=== PATIENT | female | born 1950 | race Caucasian/White ===

== ENCOUNTER 2020-03-25 13:29 | Outpatient (REF) | payer MEDICARE, MEDICAID, SELFPAY ==
--- NOTE | 2020-03-25 13:32 | CT_ITS ---
EXAMINATION: CT CHEST SCREENING CLINICAL INFORMATION: Smoker. Lung screening. COMPARISON: CT chest 01/22/2019 TECHNIQUE: Multidetector volumetric CT imaging of the chest is performed without contrast using low dose technique. Additional 2D coronal and sagittal reformatted images and axial 3D maximum intensity projection (MIP) images are generated on the CT workstation. This CT examination was performed using dose optimization techniques as appropriate, variously including the following: Automated exposure control. Adjustment of mA and/or kV according to patient size (this includes techniques or standardized protocols for targeted exams where dose is matched to indication/reason for exam; i.e. extremities or head). Use of iterative reconstruction technique. DLP: 36 mGy-cm FINDINGS: LUNGS: There are small cystic changes in the right lung apex with mild emphysema. Mild reticular changes and minimal haziness in the left upper lobe are stable. Small cystic changes seen previously in the left upper lobe anteriorly are not visualized at this time. Mild scarring along the medial segment of right middle lobe is stable. A 7 mm calcified nodule right middle lobe axial image 35/4 is stable. A 2 mm right apical nodule image 4/48 and 2 mm calcified nodule right lateral CP angle right lower lobe axial image 39/4 are stable. No new nodules seen. MEDIASTINUM: The thyroid lobes are symmetrical and normal. The central trachea and the bronchi are widely patent. The heart size and great vessels are normal caliber. No pericardial effusion seen. PLEURA: There is no pleural effusion. No pleural mass or thickening. AXILLA: No lymphadenopathy. UPPER ABDOMEN: Visualized liver, spleen and pancreas appears unremarkable. The left adrenal gland is prominent. OSSEOUS STRUCTURES: No lytic or sclerotic process seen. Mild ventral spondylosis. CT/CT lung screening IMPRESSION: Minimal emphysema. Stable pulmonary nodules. Largest 7 mm noncalcified nodule right middle lobe is stable as well. No abnormal size mediastinal or axillary lymphadenopathy. ASSESSMENT: Lung-RADS category 2: Benign RECOMMENDATION: Annual low-dose CT chest follow up.
== END 2020-03-25 13:30 | disposition home or self-care (01) ==
LOC: HO.CT 13:29
PROVIDERS: PCP Internal Medicine; Visit Provider Surgery
DX: Z12.2 Encounter for screening for malignant neoplasm of respiratory organs (principal); Z87.891 Personal history of nicotine dependence
CPT/HCPCS: 71250

== ENCOUNTER 2020-04-15 13:31 | Outpatient (REF) | payer MEDICARE, MEDICAID, SELFPAY | END 2020-04-15 13:32 | disposition home or self-care (01) | LOC: HO.LAB 13:31 | PROVIDERS: Visit Provider Internal Medicine | DX: Z20.828 Contact with and (suspected) exposure to other viral communicable diseases (principal) | CPT/HCPCS: C9803; U0003 ==

== ENCOUNTER 2020-04-21 16:08 | Outpatient (REF) | payer MEDICARE, SELFPAY ==
--- NOTE | 2020-04-21 | MM_ITS ---
EXAMINATION: MM SCREENING DIGITAL BREAST TOMOSYNTHESIS, BILATERAL CLINICAL INFORMATION: Screening. Asymptomatic. The lifetime risk of breast cancer based on the Tyrer-Cuzick Model is 5%. COMPARISON: Outside mammography: 02/28/2019, 09/27/2016, 07/23/2015 ([facility]). TECHNIQUE: Digital breast tomosynthesis is performed in both the craniocaudal and mediolateral oblique views along with computer-aided detection (CAD). Synthesized 2D images are generated from the tomosynthesis. FINDINGS: There are scattered areas of fibroglandular density (ACR BI-RADS breast composition Category b). Breast tissue composition borders on heterogeneously dense. There is no significant mass or architectural abnormality or abnormal calcifications. Again, there are benign grouped calcifications upper outer quadrant left breast, coarsening over time, suggesting degenerating fibroadenoma. Again, there is a stable smooth nodule retroareolar right breast. The bilateral axilla and skin contours are unremarkable. MM/MM tomosynthesis screening BI IMPRESSION: No significant changes from prior outside exams. ASSESSMENT: BI-RADS 2: Benign RECOMMENDATION: Routine annual mammography screening. This patient's information was entered into a reminder system with a target due date for their next mammogram.
== END 2020-04-21 16:09 | disposition home or self-care (01) ==
LOC: HO.MAMMO 16:08
PROVIDERS: PCP Internal Medicine; Visit Provider Internal Medicine
DX: Z12.31 Encounter for screening mammogram for malignant neoplasm of breast (principal)
CPT/HCPCS: 77063; 77067

== ENCOUNTER 2020-08-09 07:55 | Outpatient (REF) | payer MEDICARE, MEDICAID, SELFPAY ==
--- NOTE | ~2020-08-09 | XR_ITS ---
EXAMINATION: XR KNEE, LEFT CLINICAL INFORMATION: Knee pain COMPARISON: Standing AP knees 09/09/2018, left knee radiographs 08/08/2018. TECHNIQUE: Four views of the left knee. FINDINGS: There is no fracture, dislocation, destructive process, or definite suprapatellar effusion. Hoffa's fat pad appears normal. There are osteoarthritic changes greatest medial knee joint compartment with joint narrowing and mild secondary genu varus. There is subchondral sclerosis and spurring from the medial femoral condyle. There is no erosive change or visible chondrocalcinosis. Axial view patella shows no lateralization or tilting. XR/XR knee LT 4V IMPRESSION: Osteoarthritis medial knee joint compartment with secondary mild genu varus. No effusion.
[2020-08-09 09:56] LABS: Alanine Aminotransferase 17 U/L (0-31); Albumin Level 4.1 g/dL (3.5-5.0); Alkaline Phosphatase 90 U/L (39-117); Anion Gap 11 (12-20); Aspartate Amino Transferase 19 U/L (5-31); Bilirubin Total 0.8 mg/dL (0.0-1.0); Blood Urea Nitrogen 23 mg/dL (9-16); Calcium 10.3 mg/dL (8.4-10.2); Carbon Dioxide 26 mmol/L (22-29); Chloride 108 mmol/L (96-108); Cholesterol 122 mg/dL; Estimated Glomerular Filt Rate > 60; Glucose Fasting 97 mg/dL (60-99); HDL Cholesterol 44 mg/dL; LDL Cholesterol Calculated 55 mg/dl; Potassium 4.4 mmol/L (3.3-5.1); Sodium 141 mmol/L (135-145); Total Protein 6.8 g/dL (6.5-8.0); Triglycerides 116 mg/dL
== END 2020-08-09 07:56 | disposition home or self-care (01) ==
LOC: HO.LAB 07:55
PROVIDERS: PCP Internal Medicine; Visit Provider Internal Medicine
DX: E78.5 Hyperlipidemia, unspecified (principal); E78.00 Pure hypercholesterolemia, unspecified
CPT/HCPCS: 36415; 73564; 80053; 80061

== ENCOUNTER 2020-12-03 06:32 | Outpatient (REF) | payer MEDICARE, MEDICAID, SELFPAY ==
[2020-12-03 08:02] LABS: Alanine Aminotransferase 18 U/L (0-31); Albumin Level 4.1 g/dL (3.5-5.0); Alkaline Phosphatase 87 U/L (39-117); Anion Gap 10 (12-20); Aspartate Amino Transferase 18 U/L (5-31); Bilirubin Total 0.6 mg/dL (0.0-1.0); Blood Urea Nitrogen 24 mg/dL (9-16); Calcium 10.4 mg/dL (8.4-10.2); Carbon Dioxide 26 mmol/L (22-29); Chloride 110 mmol/L (96-108); Cholesterol 113 mg/dL; Estimated Glomerular Filt Rate > 60; Glucose Fasting 93 mg/dL (60-99); HDL Cholesterol 44 mg/dL; LDL Cholesterol Calculated 50 mg/dl; Potassium 4.3 mmol/L (3.3-5.1); Sodium 142 mmol/L (135-145); Total Protein 6.8 g/dL (6.5-8.0); Triglycerides 99 mg/dL
== END 2020-12-03 06:33 | disposition home or self-care (01) ==
LOC: HO.LAB 06:32
PROVIDERS: PCP Internal Medicine; Visit Provider Internal Medicine
DX: E78.5 Hyperlipidemia, unspecified (principal); E78.00 Pure hypercholesterolemia, unspecified
CPT/HCPCS: 36415; 80053; 80061

== ENCOUNTER 2021-05-26 10:09 | Outpatient (REF) | payer MEDICARE, MEDICAID, SELFPAY ==
--- NOTE | ~2021-05-26 | MM_ITS ---
EXAMINATION: MM SCREENING DIGITAL BREAST TOMOSYNTHESIS, BILATERAL CLINICAL INFORMATION: Screening. Asymptomatic. The lifetime risk of breast cancer based on the Tyrer-Cuzick Model is 13%. COMPARISON: Mammography: April 21, 2020 and studies dating back to July 23, 2015 TECHNIQUE: Digital breast tomosynthesis is performed in both the craniocaudal and mediolateral oblique views along with computer-aided detection (CAD). Synthesized 2D images are generated from the tomosynthesis. FINDINGS: There are scattered areas of fibroglandular density (ACR BI-RADS breast composition Category b). There are no significant masses, abnormal calcifications, or other abnormalities. MM/MM tomosynthesis screening BI IMPRESSION: There are no significant changes from prior study. ASSESSMENT: BI-RADS 1: Negative RECOMMENDATION: Routine annual mammography screening. This patient's information was entered into a reminder system with a target due date for their next mammogram.
== END 2021-05-26 10:10 | disposition home or self-care (01) ==
LOC: HO.MAMMO 10:09
PROVIDERS: PCP Internal Medicine; Visit Provider Internal Medicine
DX: Z12.31 Encounter for screening mammogram for malignant neoplasm of breast (principal)
CPT/HCPCS: 77063; 77067

== ENCOUNTER 2023-05-29 15:05 | Outpatient (AMB) | payer MEDICARE, SELFPAY ==
--- NOTE | 2023-05-29 15:46 | MHC.PC.OV ---
Vital Signs 05/29/23 15:48 Height 4 ft 11 in Weight 125 lb BMI 25.2 BP 112/80 Blood Pressure Location Lt brachial Position Sitting Intake Visit Reasons: Cataracts Follow up/ED follow up Intake Note: Patient here for referral to personnel security specialist for cataracts, med refills, seen at [facility] ED on 04/14/23 for BPPV Drug Enforcement Agent Required: No Accompanied by: Daughter Allergies No Known Allergies Allergy (Verified 05/29/23 16:03) Medication List - Last Reconciled 05/29/23 by Isatu Lemus MD albuterol sulfate 5 mg inhalation Q6H PRN 30 days albuterol sulfate 90 mcg/actuation 2 puffs inhalation Q6H PRN 30 days alendronate 70 mg PO QWEEK 90 days atorvastatin 10 mg PO QPM 90 days calcium carbonate-vitamin D3 600 mg-10 mcg (400 unit) (Calcium 600 with Vitamin D3) 1 tab PO DAILY cholecalciferol (vitamin D3) 25 mcg PO DAILY 90 days fluticasone propionate 220 mcg/actuation (Flovent HFA) 2 puffs inhalation BID 30 days Tobacco use date assessed: 05/29/23 Fall risk assessment: No Falls in past year Last assessed Fall Risk: 05/29/23 Dental Screening Dental Screen Date: 05/29/23 Did you have a dental visit in the last 12 months?: No Was dental information given to patient?: Patient declined HPI HPI Comments History of Present Illness Details This is a 72-year-old female with pure hypercholesterolemia, osteoporosis and asthma that comes today accompanied by daughter complaining of a skin lesion that is nontender and nonpruritic and has been present for few months. Located in the left elbow. Lipid panel will be order. Last bone density was done in [place] in 2022. She use rescue inhaler as needed and was advised to quit smoking. Denies any chest pain or shortness of breath. [facility] Medical History (Updated 05/29/23 @ 16:15 by Istau Lemus MD) Moderate persistent asthma in adult without complication Hypercalcemia Post-menopausal Left knee pain Osteoporosis Pure hypercholesterolemia Surgical History History of colonoscopy History of hysterectomy History of breast biopsy Family History Father CVD (cardiovascular disease) Asthma Mother CVD (cardiovascular disease) Thyroid disease CAD (coronary artery disease) Sister Diabetes Daughter Hypertension Bipolar 1 disorder Substance abuse Family/Other Chronic mental illness Social History Housing: Apartment Alcohol intake: never Patient Tobacco Use Status: Current everyday Tobacco user Tobacco use type: Cigarette Cigarettes Per Day: 10 e-Cigarette/Vaping Use: Never Used Second Hand Smoke Exposure: No service: No Current occupational status: disabled Cognitive needs: No Hearing needs: No Vision needs: Yes Questionnaire PHQ-9 Over the last 2 weeks, how often have you been bothered by any of the following problems? 1. Little interest or pleasure in doing things: not at all 2. Feeling down, depressed, or hopeless: not at all 3. Trouble falling or staying asleep, or sleeping too much: not at all 4. Feeling tired or having little energy: not at all 5. Poor appetite or overeating: several days 6. Feeling bad about yourself - or that you are a failure or have let yourself or your family down: not at all 7. Trouble concentrating on things, such as reading the newspaper or watching television: not at all 8. Moving or speaking so slowly that other people could have noticed. Or the opposite - being so fidgety or restless that you have been moving around a lot more than usual: not at all 9. Thoughts that you would be better off or of hurting yourself in some way: not at all Total score: 1 Depression Screening Interpretation: Negative Depression Screening Done: Yes 80694 - PHQ-9 Billing: Yes Source: Developed by Drs. Lance Herzog, Fatuma Akers, Gómez Bell and colleagues, with an educational trae from [employer]. Thrive Questionnaire Date Thrive assessed: 05/29/23 I am a: Patient What is your living situation today?: I have a steady place to live Within the past 12 months, did the food you bought not last and you didn't have the money to get more?: Never true Within the past 12 months, did you worry whether your food would run out before you got money to buy more?: Never true Do you have trouble paying for medicines?: No Do you have trouble getting transportation to medical appointments?: No Do you have trouble paying your heating and electricity bill?: No Do you have trouble taking care of your child, family member or friend?: No Do you have trouble with day-to-day activities such as bathing, preparing meals, shopping, managing finances, etc.?: No Are you currently unemployed and looking for a job?: No Are you interested in more education?: No Please select the resources that you would like help with: None Currently or been in a relationship where the following occur: no concerns reported THRIVE Score: 0 AUDIT C Alcohol Use Questionnaire (AUDIT-C) 1. How often do you have a drink containing alcohol?: Never Total Score: 0 MERI-7 AMB Questionnaire MERI-7 Date MERI - 7 assessed: 05/29/23 Feeling nervous, anxious, or on edge: 0 = Not at all Not being able to stop or control worryin = Not at all Worrying too much about different things: 0 = Not at all Trouble relaxin = Not at all Being so restless that it is hard to sit still: 0 = Not at all Becoming easily annoyed or irritable: 0 = Not at all Feeling afraid as if something awful might happen: 0 = Not at all Total MERI-7 score (0-4 normal; 5-9 mild; 10-14 moderate; 15-21 severe): 0 Source: Developed by Drs. Lance Herzog, Fatuma Akers, Gómez Bell and colleagues, with an educational trae from [employer]. MERI-7 Assessment Billing MERI-7 Assessment Tool: MERI-7 Assessment 71031 Review of Systems Const All systems reviewed & are unremarkable except as noted in HPI and below Eyes Reports no additional complaints, Denies change in vision and Denies other visual disturbances Card Denies chest pain at rest, Denies chest pain with activity, Denies edema, Denies irregular heart rhythm, Denies claudication, Denies dyspnea, Denies dyspnea on exertion, Denies orthopnea, Denies paroxysmal nocturnal dyspnea and Denies slow heart rate Resp Denies cough, Denies dyspnea and Denies dyspnea on exertion GI Denies abdominal pain, Denies change in bowel habits, Denies excessive flatus, Denies nausea and Denies vomiting Denies urinary incontinence, Denies urinary hesitancy and Denies urinary urgency Musc Denies abnormal gait, Denies atrophy, Denies deformity and Denies limited range of motion Skin/Breast Denies bleeding lesions, Denies changing lesions and Denies rash Neuro Denies abnormal gait and Denies lack of coordination Physical exam (Primary Care) Vital Signs: Last Vital Signs BP 112/80 05/29/23 15:48 BMI result Body Mass Index 25.2 Tobacco/Smoking Status: Tobacco use Status Tobacco use date assessed 05/29/23 05/29/23 15:58 Patient Tobacco Use Status Current everyday Tobacco 05/29/23 15:54 Tobacco use type Cigarette 05/29/23 15:54 e-Cigarette/Vaping Use Never Used 05/29/23 15:54 PHQ-9: PHQ-9 Score PHQ-9: Total score 1 05/29/23 16:18 Depression Screening Interpretation: Negative Thrive Assessment: Date of Thrive Assessment Date Thrive assessed 05/29/23 05/29/23 15:58 Currently or been in a relationship where the following occur: no concerns reported Eyes General: appearance normal, both eyes and all related structures Eyelids: Yes eyelids normal Conjunctivae: conjunctivae normal Neck Neck: Yes normal visual inspection and Yes supple Resp Effort & Inspection: normal respiratory effort Auscultation: wheezes Cardio Jugular venous distension: no JVD Rate: regular rate Rhythm: regular rhythm Heart sounds: S1 normal heart sound present and S2 normal heart sound present Extrem General: Yes full ROM Assessment and Plan Assessment & Plan (1) Asthma: Code(s): J45.909 - Unspecified asthma, uncomplicated Plan: Use rescue inhaler as needed. Referred to pulmonology. (2) Osteoporosis: Code(s): M81.0 - Age-related osteoporosis without current pathological fracture Qualifiers: Osteoporosis type: age-related Presence of current pathological fracture: without current pathological fracture Qualified Code(s): M81.0 - Age-related osteoporosis without current pathological fracture Plan: Continue alendronate. Repeat bone density in 2024. (3) Pure hypercholesterolemia: Code(s): E78.00 - Pure hypercholesterolemia, unspecified Plan: Continue statins. Repeat lipid panel. (4) Skin lesion: Code(s): L98.9 - Disorder of the skin and subcutaneous tissue, unspecified Plan: Referred to dermatology. Orders: Orders Vitamin D 25-OH Total Today E55.9 - Vitamin D deficiency, unspecified Lipid Panel Today E78.5 - Hyperlipidemia, unspecified Comprehensive [place]. Panel Fast Today E78.00 - Pure hypercholesterolemia, unspecified Referrals Ophthalmology Referral H26.9 - Unspecified cataract Dermatology Referral L98.9 - Disorder of the skin and subcutaneous tissue, unspecified Pulmonology Referral J45.909 - Unspecified asthma, uncomplicated Medications: Changed From fluticasone propionate 220 mcg/actuation (Flovent HFA) 2 puffs inhalation BID 30 days 12 grams 2RF To fluticasone propionate 220 mcg/actuation 2 puffs inhalation BID 12 grams 2RF 30 days Refilled albuterol sulfate 90 mcg/actuation 2 puffs inhalation Q6H PRN 6.7 grams 6RF bronchospasm 30 days cholecalciferol (vitamin D3) 25 mcg PO DAILY 90 caps 3RF 90 days alendronate 70 mg PO QWEEK 13 tabs 1RF 90 days atorvastatin 10 mg PO QPM 90 tabs 3RF 90 days calcium carbonate-vitamin D3 600 mg-10 mcg (400 unit) (Calcium 600 with Vitamin D3) 1 tab PO DAILY 90 tabs 1RF Coding Level of Care Code Est Pt Level 4 (38393) Diagnoses Asthma J45.909 Age-related osteoporosis without current pathological fracture M81.0 Osteoporosis type: age-related Presence of current pathological fracture: without current pathological fracture Pure hypercholesterolemia E78.00 Skin lesion L98.9 Additional Codes MERI-7 Assessment Billing - MERI-7 Assessment Tool: MERI-7 Assessment 77687 ([id number]) Time Spent (min) 24
[2023-05-29 15:48] VITALS: BP 112/80; BMI 25.2
== END 2023-05-29 16:15 | disposition home or self-care (01) ==
PROVIDERS: PCP Internal Medicine; Visit Provider Internal Medicine
DX: J45.909 Unspecified asthma, uncomplicated (principal); M81.0 Age-related osteoporosis without current pathological fracture; E78.00 Pure hypercholesterolemia, unspecified; L98.9 Disorder of the skin and subcutaneous tissue, unspecified
CPT/HCPCS: 99214